=== PATIENT | female | born 1980 | race Caucasian/White ===

== ENCOUNTER → 2017-10-21 | Outpatient (CLI) | payer OTHER ==
[~2017-10-21] MED LIST: ADVAIR 250/28 DISKU1 IH; ASTEPRO137 MCG/Ac NS; BACTRIM DS 8001 TAB PO; DULERA1 ARO IH; FERROUS SULFAT325 MG PO; LIPITOR 10MG10 MG PO; MACROBID 1100 MG/CAP PO; NASACORT OTC NS; NASACORT55 MCG/ACT NS; PREVACID 30MG30 M1 PO; RT ALBUTER2.5 MG/0.5 IH; SYNTHROID0.075 MG PO; SYNTHROID0.075 MG/T PO; SYNTHROID0.112 MG/T PO; TOPROL XL25 MG PO; TOPROL XL50 MG PO; ZYRTEC10 MG PO
[2017-10-21 09:41] LABS: ALBUMIN 4.7 gm/dL (3.5-5.0); BILIRUBIN,TOTAL 0.5 mg/dL (0.0-1.0); CALCIUM 9.8 mg/dL (8.4-10.2); CHOLESTEROL RISK RATIO 4.1; CREATININE, serum 0.7 mg/dL (0.52-1.25); TOTAL PROTEIN 8.6 gm/dL (6.4-8.2)
[2017-10-21 10:11] LABS: THYROID STIMULATING HORMONE 5.88 uIU/mL (0.465-4.680)
== END ==
LOC: COL.LAB 08:36
DX: E05.90 Thyrotoxicosis, unspecified without thyrotoxic crisis or storm (principal); E55.9 Vitamin D deficiency, unspecified; E78.5 Hyperlipidemia, unspecified; E78.6 Lipoprotein deficiency

== ENCOUNTER → 2020-10-22 | Outpatient (CLI) | payer OTHER | LOC: COL.RAD 07:22 | DX: J32.0 Chronic maxillary sinusitis (principal); Z98.890 Other specified postprocedural states ==